=== PATIENT | female | born 1960 | race Caucasian/White ===

== ENCOUNTER 2016-11-07 09:13 | Emergency (ER) | payer OTHER ==
[2016-11-07 10:03] VITALS: BP 145/89
--- NOTE | 2016-11-07 10:12 | UC ---
Hand/Wrist HPI - HPI Summary HPI Summary: fell landing on left hand about [place] time-had pain in left thumb, pain seem to be resolving now after doing yard work has return of pain - History Of Current Complaint Chief Complaint: UCUpperExtremity Stated Complaint: THUMB INJURY Time Seen by Provider: 11/07/16 09:55 Hx Obtained From: Patient Hx Last Menstrual Period: 10/20/16 ?: No Mechanism Of Injury: fall Onset/Duration: Sudden Onset, Lasting Days, Worse Since - return of pain 3 days after yard work Severity Initially: Moderate Severity Currently: Moderate Pain Intensity: 5 Pain Scale Used: 0-10 Numeric Character Of Pain: Aching, Throbbing, Stiffness Aggravating Factor(s): Movement Alleviating: Nothing Associated Signs And Symptoms: Positive: Swelling, Weakness Related History: Dominant Hand Right - Allergies/Home Medications Allergies/Adverse Reactions: Allergies Allergy/AdvReac Type Severity Reaction Status Date / Time No Known Allergies Allergy Verified 04/14/13 10:03 Home Medications: Home Medications Cholecalciferol [Vitamin D-3] 1 tab PO DAILY 11/07/16 [History Confirmed ] PMH/Surg Hx/FS Hx/Imm Hx Previously Healthy: Yes Endocrine History Of: Denies: Diabetes, Thyroid Disease Cardiovascular History Of: Denies: Cardiac Disorders, Hypertension Respiratory History Of: Denies: COPD, Asthma GI/ History Of: Denies: Ulcer Cancer History Of: Denies: Breast Cancer - Surgical History Surgical History: None - Family History Known Family History: Positive: None Family History: denies cardio vascular history in family lineage - Social History Occupation: Employed Full-time Lives: With Family Alcohol Use: Weekly Substance Use Type: None Smoking Status (MU): Never Smoked Tobacco Review of Systems Constitutional: Negative Skin: Negative Eyes: Negative ENT: Negative Respiratory: Negative Cardiovascular: Negative Gastrointestinal: Negative Genitourinary: Negative Motor: Decreased ROM - left distal thumb Neurovascular: Negative Musculoskeletal: Arthralgia - left thumb Neurological: Negative Psychological: Negative All Other Systems Reviewed And Are Negative: Yes Physical Exam Triage Information Reviewed: Yes Appearance: Well-Appearing, No Pain Distress, Well-Nourished Vital Signs: Initial Vital Signs Temp 98.7 F 11/07/16 09:58 Pulse 67 11/07/16 09:58 Resp 16 11/07/16 09:58 BP 145/89 11/07/16 09:58 Pulse Ox 98 11/07/16 09:58 Vital Signs Reviewed: Yes Eye Exam: Normal Eyes: Positive: Conjunctiva Clear ENT Exam: Normal ENT: Positive: Normal ENT inspection, Hearing grossly normal, TMs normal, Tonsillar swelling, Tonsillar exudate. Negative: Nasal congestion, Nasal drainage, Trismus, Muffled/hoarse voice Respiratory Exam: Normal Respiratory: Positive: Chest non-tender, No respiratory distress, No accessory muscle use Cardiovascular Exam: Normal Cardiovascular: Positive: RRR, Pulses Normal, Brisk Capillary Refill Musculoskeletal: Positive: Strength Limited @ - left thumb, ROM Limited @ - distal left thumb Neurological Exam: Normal Neurological: Positive: Alert, Muscle Tone Normal Psychological Exam: Normal Skin Exam: Normal Diagnostics - Radiology No standard instances Xray Interpretation: Positive (See Comments) - degenerative changes distal interphalange joint left thumb Radiology Interpretation Completed By: Radiologist Hand/Wrist Course/Dx - Course Course Of Treatment: thumb spica trail for pain, ibuprofen (pt states she will do tumeric wrap), follow with ortho - Differential Dx/Diagnosis Differential Diagnosis/HQI/PQRI: Contusion, Gout, Sprain, Strain, Tendonitis Provider Diagnoses: Left thumb injury, degenerative joint changes Discharge - Discharge Plan Condition: Stable Disposition: HOME Patient Education Materials: Ibuprofen (By mouth), Osteoarthritis (ED) Referrals: Omar Whittaker MD [Medical Doctor] - 4 Days Raúl Roberto MD [Primary Care Provider] - If Needed
--- NOTE | 2016-11-07 10:46 | RAD ---
Indication: Left thumb pain. 3 views of left thumb demonstrates degenerative changes of the interphalangeal joint. No fracture is identified. IMPRESSION: Interphalangeal joint of the thumb.
== END 2016-11-07 11:06 | disposition home or self-care (01) ==
LOC: UCEAST 09:13
DX: S69.92XA Unspecified injury of left wrist, hand and finger(s), initial encounter (principal); X58.XXXA Exposure to other specified factors, initial encounter; Y93.89 Activity, other specified; Y92.096 Garden or yard of other non-institutional residence as the place of occurrence of the external cause; M19.042 Primary osteoarthritis, left hand
CPT/HCPCS: 99211; G0463

== ENCOUNTER 2017-11-04 09:08 | Emergency (ER) | payer OTHER ==
--- NOTE | 2017-11-04 10:15 | RAD ---
HISTORY: Subacute trauma, low back pain COMPARISONS: MRI dated May 26, 2017 VIEWS: 5 , Frontal, lateral, coned-down lateral sacral, and bilateral oblique views of the lumbar spine. FINDINGS: ALIGNMENT: There is grade 1 anterolisthesis of L5 on S1. VERTEBRAL BODIES: There is mild multilevel anterolateral marginal osteophyte formation. Again noted are pars defects of L5 JOINTS: There is facet hypertrophic change along the lower lumbar spine INTERVERTEBRAL DISCS: There is mild diffuse loss of intervertebral disc height. SOFT TISSUE: Unremarkable. OTHER: The pelvis is unremarkable. The lung bases are clear. At IUD is noted. 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 MILD DEGENERATIVE DISC DISEASE AND OSTEOARTHRITIS.
[2017-11-04 10:56] VITALS: BP 149/66
--- NOTE | 2017-11-05 14:15 | ED ---
Damian Hernandez Julia, scribed for David Olivares MD on 11/04/17 at 1001 . Lower Extremity - HPI Summary HPI Summary: This patient is a 57 year old F presenting to [facility] with a chief complaint of posterior hip and back pain. Patient reports L anterior and posterior sciatica. The patient rates the pain 6/10 in severity. Symptoms aggravated by reoccurring falls. Symptoms alleviated by ice and Motrin. Patient has history of falls to her L hip while biking and cross country skiing.. Patient reports worsened symptoms after she slipped and fell on her L hip about a week ago. Patient reports massage therapy and physical therapy have not been helping and she is concerned for fracture. Patient has previous fracture and herniated vertebral disc at L5 S1, and a suspected labral tear in L hip. - History of Current Complaint Chief Complaint: EDBackInjuryPain Stated Complaint: LOWER BACK PAIN AND HIP PAIN FALL Time Seen by Provider: 11/04/17 09:38 Hx Obtained From: Patient Hx Last Menstrual Period: 10/20/16 Mechanism Of Injury: Fall From A Standing Position Onset of Pain: Prior to Arrival Onset/Duration: Still Present Pain Intensity: 6 Pain Scale Used: 0-10 Numeric Timing: Constant Location: Other - Low back, L hip, and L sided sciatica Alleviating Factor(s): Ice Able to Bear Weight: Yes Related History: Other - fx and herniated disc at L5 S1 - Allergies/Home Medications Allergies/Adverse Reactions: Allergies Allergy/AdvReac Type Severity Reaction Status Date / Time No Known Allergies Allergy Verified 05/22/17 12:28 PMH/Surg Hx/FS Hx/Imm Hx Endocrine/Hematology History: Denies: Hx Diabetes, Hx Thyroid Disease Cardiovascular History: Denies: Hx Hypertension, Hx Pacemaker/ICD Respiratory History: Denies: Hx Asthma, Hx Chronic Obstructive Pulmonary Disease (COPD) GI History: Denies: Hx Ulcer History: Denies: Hx Renal Disease Musculoskeletal History: Reports: Hx Back Problems, Hx Orthopedic Injury - L5 S1 herniated disc Sensory History: Denies: Hx Hearing Aid Psychiatric History: Denies: Hx Panic Disorder - Cancer History Hx Chemotherapy: No Hx Radiation Therapy: No Infectious Disease History: No Infectious Disease History: Denies: Hx Hepatitis, Hx Human Immunodeficiency Virus (HIV), Traveled Outside the [place] in Last 30 Days - Family History Known Family History: Positive: Cardiac Disease - [place] - paternal, Other - [place] Negative: Diabetes Family History: denies cardio vascular history in family lineage - Social History Alcohol Use: Weekly Alcohol Amount: 2 a week Substance Use Type: Reports: None Smoking Status (MU): Never Smoked Tobacco Review of Systems Negative: Fever Musculoskeletal: Other - L back and hip pain, sciatica All Other Systems Reviewed And Are Negative: Yes Physical Exam - Summary Physical Exam Summary: Appearance: The patient is well-nourished in no acute distress and in no acute pain. Skin: The skin is warm and dry and skin color reflects adequate perfusion. HEENT: The head is normocephalic and atraumatic. The pupils are equal and reactive. The conjunctivae are clear and without drainage. Nares are patent and without drainage. Mouth reveals moist mucous membranes and the throat is without erythema and exudate. The external ears are intact. The ear canals are patent and without drainage. The tympanic membranes are intact. Neck: the neck is supple with full range of motion and non-tender. There are no carotid bruits. There is no neck vein distension. Respiratory: Chest is non-tender. Lungs are clear to auscultation and breath sounds are symmetrical and equal. Cardiovascular: Heart is regular rate and rhythm. There is no murmur or rub auscultated. There is no peripheral edema and pulses are symmetrical and equal. Abdomen: The abdomen is soft and non-tender. There are normal bowel sounds heard in all four quadrants and there is no organomegaly palpated. Musculoskeletal: There is no back tenderness noted. Extremities are non-tender with full range of motion. There is good capillary refill. There is no peripheral edema or calf tenderness elicited. L buttock sciatica present. Neurological: Patient is alert and oriented to person, place and time. The patient has symmetrical motor strength in all four extremities. Cranial nerves are grossly intact. Deep tendon reflexes are symmetrical and equal in all four extremities. Psychiatric: The patient has an appropriate affect and does not exhibit any anxiety or depression. Triage Information Reviewed: Yes Vital Signs On Initial Exam: Initial Vitals Temp Pulse Resp BP Pulse Ox 97.4 F 60 15 139/68 99 11/04/17 09:10 11/04/17 09:10 11/04/17 09:10 11/04/17 09:10 11/04/17 09:10 Vital Signs Reviewed: Yes Diagnostics - Vital Signs Vital Signs Temp Pulse Resp BP Pulse Ox 11/04/17 09:10 97.4 F 60 15 139/68 99 - Laboratory Lab Statement: Any lab studies that have been ordered have been reviewed, and results considered in the medical decision making process. 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 MILD DEGENERATIVE DISC DISEASE AND OSTEOARTHRITIS. ED Physician has reviewed this report. Lower Extremity Course/Dx - Course Course Of Treatment: Nubia presented with sciatic pain and a recent fall. She was concerned that she might have a fracture as one was found recently and may not have been completely healed. X-ray was negative and she didn't want any medications. - Diagnoses Provider Diagnoses: Sciatica Discharge - Discharge Plan Condition: Stable Disposition: HOME Patient Education Materials: Sciatica (ED) Referrals: Raúl Roberto MD [Primary Care Provider] - Additional Instructions: Follow up with Primary Care Physician for additional concerns. I suggest ibuprofen for pain relief as needed. RETURN TO THE EMERGENCY DEPARTMENT FOR CHANGING OR WORSENING SYMPTOMS. The documentation as recorded by the Damian edwards Julia accurately reflects the service I personally performed and the decisions made by me, David Olivares MD.
== END 2017-11-04 10:55 | disposition home or self-care (01) ==
LOC: ED 09:08
DX: M54.32 Sciatica, left side (principal); M51.36 Other intervertebral disc degeneration, lumbar region; M54.9 Dorsalgia, unspecified
CPT/HCPCS: 72110; 99281

== ENCOUNTER 2018-01-01 11:50 | Emergency (ER) | payer OTHER ==
--- NOTE | 2018-01-01 12:34 | ED ---
Lower Extremity - HPI Summary HPI Summary: 57-year-old female presents with right calf pain for the past couple days. She states the pain is only on the outer aspect of her rught calf at night. She states she has no pain during the day. Pain is only sharp at night. She denies any numbness or tingling. She denies any injury. She had surgery 2 weeks ago on her back. She also is on control. She is nonsmoker. She denies any family history of blood clots. She denies any recent travel. She denies any chest or shortness breath. Nothing works for the pain. She denies any rash or fevers. - History of Current Complaint Chief Complaint: EDExtremityLower Stated Complaint: RT LEG PAIN-SURG 2 WEKKS AGO Time Seen by Provider: 01/01/18 12:01 Hx Last Menstrual Period: 10/20/16 Pain Intensity: 2 - Allergies/Home Medications Allergies/Adverse Reactions: Allergies Allergy/AdvReac Type Severity Reaction Status Date / Time No Known Allergies Allergy Verified 01/01/18 12:00 Home Medications: Home Medications Acetaminophen [Tylenol] 650 mg PO TID 01/01/18 [History Confirmed 01/01/18] Estradiol 0.5 mg PO DAILY 01/01/18 [History Confirmed 01/01/18] Oxycodone HCl 5 - 10 mg PO Q6HR PRN 01/01/18 [History Confirmed 01/01/18] Pantoprazole Sodium 40 mg PO DAILY 01/01/18 [History Confirmed 01/01/18] Progesterone, Micronized [Progesterone] 100 mg PO BEDTIME 01/01/18 [History Confirmed 01/01/18] Sennosides [Senna] 17.2 mg PO BID 01/01/18 [History Confirmed 01/01/18] PMH/Surg Hx/FS Hx/Imm Hx Endocrine/Hematology History: Denies: Hx Diabetes, Hx Thyroid Disease Cardiovascular History: Denies: Hx Hypertension, Hx Pacemaker/ICD Respiratory History: Denies: Hx Asthma, Hx Chronic Obstructive Pulmonary Disease (COPD) GI History: Denies: Hx Ulcer History: Denies: Hx Renal Disease Musculoskeletal History: Reports: Hx Back Problems, Hx Orthopedic Injury - L5 S1 herniated disc Sensory History: Denies: Hx Hearing Aid Psychiatric History: Denies: Hx Panic Disorder - Cancer History Hx Chemotherapy: No Hx Radiation Therapy: No Infectious Disease History: No Infectious Disease History: Denies: Hx Hepatitis, Hx Human Immunodeficiency Virus (HIV), Traveled Outside the [place] in Last 30 Days - Family History Known Family History: Positive: None, Cardiac Disease - [place] - paternal, Other - [place] Negative: Diabetes Family History: denies cardio vascular history in family lineage - Social History Alcohol Use: Weekly Alcohol Amount: 2 a week Substance Use Type: Reports: None Smoking Status (MU): Never Smoked Tobacco Review of Systems Negative: Fever Negative: Chest Pain Negative: Shortness Of Breath Positive: Myalgia - left calf pain All Other Systems Reviewed And Are Negative: Yes Physical Exam Triage Information Reviewed: Yes Vital Signs On Initial Exam: Initial Vitals Temp Pulse Resp BP Pulse Ox 96.2 F 68 17 131/83 99 01/01/18 11:55 01/01/18 11:55 01/01/18 11:55 01/01/18 11:55 01/01/18 11:55 Vital Signs Reviewed: Yes Appearance: Positive: Well-Appearing Skin: Positive: Warm, Dry Head/Face: Positive: Normal Head/Face Inspection Eyes: Positive: Normal, Conjunctiva Clear Respiratory/Lung Sounds: Positive: Clear to Auscultation, Breath Sounds Present Cardiovascular: Positive: Normal, RRR Musculoskeletal: Positive: Strength/ROM Intact - right leg, Other - good pulses , capillary refill<2 secs, sensation grossly intact. Negative: Regine Sign Right , Edema Right Neurological: Positive: Normal Psychiatric: Positive: Normal Diagnostics - Vital Signs Vital Signs Temp Pulse Resp BP Pulse Ox 01/01/18 11:55 96.2 F 68 17 131/83 99 - Laboratory Lab Statement: Any lab studies that have been ordered have been reviewed, and results considered in the medical decision making process. - Ultrasound No standard instances Ultrasound Interpretation: No Acute Changes Ultrasound Interpretation Completed By: Radiologist Lower Extremity Course/Dx - Course Course Of Treatment: 57-year-old female presents with right calf pain for the past couple days. She states the pain is only on the outer aspect of her rught calf at night. She states she has no pain during the day. Pain is only sharp at night. She denies any numbness or tingling. She denies any injury. She had surgery 2 weeks ago on her back. She also is on control. She is nonsmoker. She denies any family history of blood clots. She denies any recent travel. She denies any chest or shortness breath. Nothing works for the pain. She denies any rash or fevers. On exam negative Homans sign. No edema to calf. Neurovascular intact. Ultrasound is normal. We'll have follow- up with primary. patient understands and agrees with plan. - Diagnoses Differential Diagnosis/HQI/PQRI: Positive: DVT, Sprain, Strain Provider Diagnoses: Right calf pain Discharge - Discharge Plan Condition: Good Disposition: HOME Patient Education Materials: R.I.C.E. Treatment (ED) Referrals: Raúl Roberto MD [Primary Care Provider] - Additional Instructions: Take Tylenol or ibuprofen every 6 hours for pain Ice, elevate Follow up with primary within 5 days Return to ED if develop any new or worsening symptoms
--- NOTE | 2018-01-01 12:35 | RAD ---
INDICATION: Lateral RIGHT calf pain. COMPARISON: No relevant prior exams available on the [facility] PACS for comparison. TECHNIQUE: Ovalle scale, color Doppler, and spectral analysis of the deep veins of the RIGHT lower extremity. Vessel compression, phasicity, and augmentation assessed. REPORT: The RIGHT common femoral, great saphenous, profunda femoral, femoral, popliteal, peroneal, and posterior tibial veins are patent. No sonographic abnormality evident at the lateral calf to correspond with the region of pain. Flow demonstrated within the anterior tibial veins on color Doppler. Patency of the LEFT common femoral vein documented. IMPRESSION: No evidence for RIGHT lower extremity deep venous thrombosis.
[2018-01-01 13:15] VITALS: BP 133/78
== END 2018-01-01 13:12 | disposition home or self-care (01) ==
LOC: ED 11:50
DX: M79.661 Pain in right lower leg (principal)
CPT/HCPCS: 99281